=== PATIENT | male | born 1945 | race Hispanic/Latino ===

== ENCOUNTER 2022-11-26 10:31 | Emergency (ER) | payer OTHER ==
[~2022-11-26] VITALS: Ht 170.2 cm; Wt 74.8 kg
[~2022-11-26 10:31] MED LIST: ASPI-1005 PO; ATOR20TA65 PO; GLYB-173 PO; LISI40TA9 PO; METO-391 PO
== END 2022-11-26 15:37 | disposition home or self-care (01) ==
LOC: EDH 10:31
DX: I63.9 Cerebral infarction, unspecified (principal); E11.9 Type 2 diabetes mellitus without complications; E78.00 Pure hypercholesterolemia, unspecified; I10 Essential (primary) hypertension; Z79.82 Long term (current) use of aspirin; Z79.84 Long term (current) use of oral hypoglycemic drugs; Z79.899 Other long term (current) drug therapy; Z86.73 Personal history of transient ischemic attack (TIA), and cerebral infarction without residual deficits; Z95.1 Presence of aortocoronary bypass graft
CPT/HCPCS: 99281